=== PATIENT | female | born 1940 | race Caucasian/White ===

== ENCOUNTER 2019-04-17 07:39 | Day surgery (SDC) | payer MEDICARE, OTHER ==
[2019-04-17] VITALS (15 sets, daily range): BP systolic 100–125; BP diastolic 55–77; PULSE 60–66; RESP 15–20; Ht 165.1 cm; Wt 68.4 kg
[~2019-04-17] VITALS: Ht 165.1 cm; Wt 68.4 kg
--- NOTE | 2019-04-17 07:05 | HP ---
DATE OF ADMISSION: 04/17/2019 HISTORY: A 78-year-old female patient seen in the office 03/18/2019 complaining of ear blockage and hearing loss. Serous otitis media was noted. The patient was treated with oral Medrol. Audiogram w as performed demonstrating conductive hearing loss, worse on the right. Medrol failed to resolve the problem. She was subsequently treated with Sudafed and Afrin, again without relief. She was seen i n the office 04/09/2019 with persistent serous otitis media and left tympanic membrane retraction. S he is now admitted to the hospital for bilateral myringotomy tube surgery. PAST MEDICAL HISTORY: ALLERGIES: MORPHINE. MEDICAL CONDITIONS: Asthma, bladder retention. MEDICATIONS: 1. Simvastatin. 2. Macrodantin. 3. Levothyroxine. PRIOR SURGERY: hysterectomy and bladder surgery. CLOTTING DISORDERS: None. HABITS: Alcohol: Social. Tobacco: None. Recreational drugs: None. PHYSICAL EXAMINATION: GENERAL: Well-developed, well-nourished female patient in no acute distress. HEENT: Head normocephalic. No masses or deformities. Ears and tympanic membranes revealed serous o titis media, right. Retracted tympanic membrane, left. Nose clear. Oropharynx is clear. NECK: No masses or adenopathy. CHEST: Clear to P and A. HEART: Regular sinus rhythm without murmur. ABDOMEN: Soft, bowel sounds normal. No masses or megaly. RECTAL: Full range of motion without deformity. NEUROLOGIC: Physiologic. PELVIC AND RECTAL: Not done. IMPRESSION: Serous otitis media. RECOMMENDATIONS: Admit for surgery. Dictated By: MARCELO HAYES/RAFAEL Conf#: [id number] DID#: [id number]
[2019-04-17] MEDS ORDERED: NITR50CA38 PO (08:40)
[2019-04-17] MEDS ORDERED: SIMV20TA PO (08:41)
[2019-04-17] MEDS ORDERED: LEVO50TA71 PO (08:41)
[2019-04-17] MEDS ORDERED: LACTATED RINGER'S 1,000 ML IV SCH (09:30)
--- NOTE | 2019-04-17 11:33 | SIPON ---
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
--- NOTE | 2019-04-17 11:39 | PREAC ---
Date/Time of Note Date/Time of Note DATE: 04/17/19 TIME: 11:37 Anesthesia Eval and Record Evaluation Time Pre-Procedure Interview DATE: 04/17/19 TIME: 11:37 Age 78 Sex female NPO: 8 hrs Preoperative diagnosis otitis media Planned procedure bilateral ear tubes Past Medical History Past Medical History: Includes Endo: Hypothyroid Surgery & Anesthesia Issues No known issue Meds Anticoagulation: No Beta Andreina within 24 hr: No Reason Beta Andreina not given: Pt. not on B-Andreina Reported Medications Levothyroxine Sodium* (Levoxyl*) 50 Mcg Tablet, 50 MCG PO BEFORE BREAKFAST, #30 TAB 04/17/19 Simvastatin* (Zocor*) 20 Mg Tablet, 20 MG PO QHS, #30 TAB 04/17/19 Nitrofurantoin Macrocrystal* (Macrodantin*) 50 Mg Cap, 50 MG PO DAILY, CAP 04/17/19 Current Medications Lactated Ringer's 1,000 ml @ 0 mls/hr Q0M IV Last administered on 04/17/19at 09:16; Admin Dose 0 MLS/HR; Start 04/17/19 at 09:30 Meds reviewed: Yes Allergies Coded Allergies: morphine (Verified Adverse Reaction, Unknown, SEVERE VOMITTING, 04/17/19) Allergies Reviewed: Yes Labs/Studies Labs Reviewed: Reviewed by anesthesiologist test: N/A Studies: ECG, CXR Pre-procedure Exam Last vitals Vital Signs Date Temp Pulse Resp B/P (MAP) Pulse Ox O2 O2 Flow FiO2 Time Delivery Rate 04/17/19 98.3 63 16 125/66 97 Room Air 09:10 (85) Airway: Adequate mouth opening, Adequate thyromental dist Mallampati: Mallampati I Teeth: Normal Lung: Normal Heart: Normal ASA Physical Status ASA physical status: 2 Emergency: None Planned Anesthetic General/MAC: LMA Planned Pain Management Parenteral pain med Pre-operative Attestations Prior to commencing anesthesia and surgery, the patient was re-evaluated, there was verification of: *The patient's identity *The results of appropriate recent lab work and preoperative vital signs *The above evaluation not changing prior to induction *Anesthetic plan, risk benefits, alternative and complications discussed with patient/family; questions answered; patient/family understands, accepts and wishes to proceed. EDGARDO KO Apr 17, 2019 11:39
[2019-04-17] MEDS ORDERED: PROPOFOL 100 ML ONE (11:41)
[2019-04-17] MEDS ORDERED: LIDOCAINE 2% (SDV) 5 ML INJ ONE (11:43)
[2019-04-17] MEDS ORDERED: FENTAnyl 50 MCG/ML VIAL ONE (11:43)
--- NOTE | 2019-04-17 12:27 | PAC ---
Date/Time of Note Date/Time of Note DATE: 04/17/19 TIME: 12:27 Post-Anesthesia Notes Post-Anesthesia Note Last documented vital signs Vital Signs Date Temp Pulse Resp B/P (MAP) Pulse Ox O2 O2 Flow FiO2 Time Delivery Rate 04/17/19 98.3 63 16 125/66 97 Room Air 1227 (85) Activity: WNL Respiratory function: WNL Cardiovascular function: WNL Mental status: Baseline Pain reasonably controlled: Yes Hydration appropriate: Yes Nausea/Vomiting absent: Yes EDGARDO KO Apr 17, 2019 12:27
[2019-04-17] MEDS ORDERED: EPHEDrine 25 MG/5 ML SYG IV PRN (12:30)
[2019-04-17] MEDS ORDERED: DIPHENHYDRAMINE 50 MG INJ IV PRN (12:30)
[2019-04-17] MEDS ORDERED: ONDANSETRON 4 MG INJ IV PRN (12:30)
[2019-04-17] MEDS ORDERED: ALBUTEROL 0.083% (NEB) 2.5 MG/3 ML AMP HHN PRN (12:30)
[2019-04-17] MEDS ORDERED: KETOROLAC 30 MG INJ IV PRN (12:30)
[2019-04-17] MEDS ORDERED: FENTAnyl 50 MCG/ML VIAL IV PRN ×2 (12:30)
[2019-04-17] MEDS ORDERED: MEPERIDINE 25 MG INJ IV PRN (12:30)
[2019-04-17] MEDS ORDERED: METOCLOPRAMIDE 10 MG INJ IV PRN (12:30)
[2019-04-17] MEDS ORDERED: LABETALOL HCL 20MG INJ IV PRN (12:30)
[2019-04-17] MEDS ORDERED: hydrALAzine 20 MG INJ IV PRN (12:30)
--- NOTE | 2019-04-17 15:37 | OPR ---
DATE OF OPERATION: 04/17/2019 PREOPERATIVE DIAGNOSIS: Chronic serous otitis media. POSTOPERATIVE DIAGNOSIS: Chronic serous otitis media. PROCEDURE PERFORMED: Bilateral myringotomies with placement of right myringotomy tube. OPERATION: The patient was brought to the operating room under parenteral sedation, general anesthes ia by LMA. The ears were prepped and draped in the usual manner. Left ear was examined with a Ze[employer] microscope. Posterior inferior myringotomy incision was made. TM was retracted. No fluid found. Procedure was terminated. Right ear was then similarly treated. Posterior inferior myringotomy inci viri was made. Thick fluid aspirated and ventilating tube placed. The patient then awakened in the operating room, extubated and returned to recovery in excellent condition. ESTIMATED BLOOD LOSS: Nil. COMPLICATIONS: None. Dictated By: MARCELO HAYES/RAFAEL Conf#: [id number] DID#: [id number]
== END 2019-04-17 14:10 | disposition home or self-care (01) ==
LOC: SDS 07:39
PROVIDERS: ATTEND Otolaryngology Otolaryngology/Facial Plastic Surgery
DX: H65.23 Chronic serous otitis media, bilateral (principal); J45.909 Unspecified asthma, uncomplicated; E03.9 Hypothyroidism, unspecified
CPT/HCPCS: 69436; J3010; L8699